=== PATIENT | male | born 1930 | race Caucasian/White ===

== ENCOUNTER 2016-10-29 08:46 | Emergency (ER) | payer MEDICARE, MEDICAID ==
[~2016-10-29 08:46] MED LIST: BACTRIM DS TAB1 EAC2 PO; CIPRO250 M2 PO; CIPRO500 M2 PO; COD LIVER OIL1 EAC3 PO; IBUPROFEN200 M3 PO; METOPROLOL SUCC25 M1 PO; MIRALAX17 G2 PO; PROAIR HFA8.5 GM INH; VISTARIL25 M1 PO; ZITHROMAX250 M1 PO
[2016-10-29 09:37] LABS: URINE APPEARANCE CLOUDY; URINE BILIRUBIN NEGATIVE (NEG); URINE BLOOD LARGE (NEG); URINE COLOR PINK; URINE GLUCOSE (UA) NEGATIVE (NEG); URINE KETONE NEGATIVE (NEG); URINE LEUKOCYTE ESTERASE POSITIVE (NEG); URINE NITRITE POSITIVE (NEG); URINE PROTEIN MODERATE (NEG); URINE SPECIFIC GRAVITY 1.015 (1.003-1.030)
[2016-10-29 09:43] LABS: URINE BACTERIA 4+
[2016-10-29 09:44] LABS: URINE AMORPHOUS 1+; URINE MUCUS 1+; URINE RBC 60-80 /[HPF] (0-5); URINE WBC 150-180 /[HPF] (0-5)
[2016-10-29] MEDS ORDERED: CIPRO500 M2 PO (09:51)
== END 2016-10-29 10:37 ==
LOC: EDMED 08:46
PROVIDERS: Emergency Medicine
PROC: 0T29X0Z Change Drainage Device in Ureter, External Approach (ICD-10-PCS; principal; 2016-10-29)
DX: T83.098A Other mechanical complication of other urinary catheter, initial encounter (principal); N39.0 Urinary tract infection, site not specified; C61 Malignant neoplasm of prostate; I10 Essential (primary) hypertension; D64.9 Anemia, unspecified; Z87.891 Personal history of nicotine dependence; Z79.899 Other long term (current) drug therapy; W19.XXXA Unspecified fall, initial encounter